=== PATIENT | male | born 1955 | race Caucasian/White ===

== ENCOUNTER → 2017-02-12 | Outpatient (REF) ==
--- NOTE | 2017-02-12 14:59 | REP ---
Left knee series: Five views. History: Degenerative joint disease. Findings: Five views of the left knee demonstrate nonarticular spurring on the anterior surface of the patella at the patellar tendon insertion consistent with chronic patellar tendonitis. Bones, joints, and soft tissues are otherwise radiographically unremarkable. Impression: Nonarticular spurring on the patella as above. Signed by Jeremiah Guerrero MD 02/12/2017 05:08 P
== END ==
LOC: M SMT 13:09
PROVIDERS: ATTEND Internal Medicine
DX: M25.762 Osteophyte, left knee (principal)

== ENCOUNTER → 2021-07-07 | Outpatient (CLI) | payer MEDICARE, OTHER ==
--- NOTE | 2021-07-07 10:41 | REP ---
INDICATION: VISUAL FIELD DEFECT COMPARISON: None. TECHNIQUE: Ruffin scale and color Doppler evaluation using linear high frequency transducer Findings: FINDINGS: Two-dimensional ruffin scale and color images demonstrate mild mixed atheromatous plaquing with normal laminar flow and no appreciable narrowing. Color Doppler interrogation demonstrates normal arterial wave patterns and velocities with no significant spectral broadening. Normal flow direction is appreciated in the bilateral vertebral arteries. ICA peak systolic velocity: Right 80.3 cm/s; Left 62.5 cm/s ICA diastolic velocity: Right 22.2 cm/s; Left 16.8 cm/s ECA peak systolic velocity: Right 121.2 cm/s; Left 109.0 cm/s CCA peak systolic velocity: Right 126.8 cm/s; Left 118.5 cm/s ICA/CCA ratio: Right 1.14 cm/s; Left 0.82 cm/s IMPRESSION: No hemodynamically significant areas of narrowing or stenosis appreciated. Based on set standards narrowing falls within the less than 50% range. <Electronically signed by Anthony Valera > 07/07/21 1037
== END ==
LOC: M RAD 10:04
PROVIDERS: ATTEND Ophthalmology
DX: H53.452 Other localized visual field defect, left eye (principal)

== ENCOUNTER → 2023-10-18 | Outpatient (REF) | payer MEDICARE, OTHER | LOC: M SMT PRO 12:57 | PROVIDERS: ATTEND Urology | DX: C61 Malignant neoplasm of prostate (principal) | CPT/HCPCS: 55700; 76942; 96372; G0416; J0665; J0696 ==

== ENCOUNTER → 2024-02-28 | Outpatient (CLI) | payer OTHER, MEDICARE ==
[2024-02-28 14:42] LABS: BLOOD UREA NITROGEN 21 MG/DL (9-23); CREATININE FOR GFR 1.18 MG/DL (0.70-1.30); GLOMERULAR FILTRATION RATE > 60.0 (>49)
== END ==
LOC: M LAB 13:19
PROVIDERS: ATTEND Otolaryngology
DX: R49.0 Dysphonia (principal)

== ENCOUNTER → 2024-03-02 | Outpatient (CLI) | payer OTHER, MEDICARE ==
[~2024-03-02] MED LIST: ISOVUE-370 76% 100ML VIAL As Ordered ONE
== END ==
LOC: M RAD 15:16
PROVIDERS: ATTEND Otolaryngology
DX: R49.0 Dysphonia (principal)
CPT/HCPCS: 70491; Q9967

== ENCOUNTER → 2024-04-06 | Outpatient (CLI) | payer OTHER, MEDICARE ==
[~2024-04-06] MED LIST changes: +E-Z-GAS II EFFERVESCENT PACKET (SODIUM BICARB./CITRIC ACID/SIMETHICONE) As Ordered ONE; +E-Z-HD 98% w/w 340GM SUSP BTL As Ordered ONE; +E-Z-PAQUE 96% w/w SUSP 176GM BTL As Ordered ONE; -ISOVUE-370 76% 100ML VIAL As Ordered ONE
== END ==
LOC: M RAD 09:23
PROVIDERS: ATTEND Otolaryngology
DX: R13.10 Dysphagia, unspecified (principal); K21.9 Gastro-esophageal reflux disease without esophagitis

== ENCOUNTER → 2024-06-16 | Outpatient (REF) | payer MEDICARE, OTHER | LOC: M SFHCDERM 17:57 | PROVIDERS: ATTEND Dermatology | DX: L72.0 Epidermal cyst (principal) ==

== ENCOUNTER → 2024-11-05 | Outpatient (CLI) | payer OTHER, MEDICARE | LOC: M PLALAB 09:24 | PROVIDERS: ATTEND Urology | DX: C61 Malignant neoplasm of prostate (principal) ==

== ENCOUNTER → 2025-06-09 | Outpatient (CLI) | payer MEDICARE, OTHER ==
[~2025-06-09] MED LIST changes: -E-Z-GAS II EFFERVESCENT PACKET (SODIUM BICARB./CITRIC ACID/SIMETHICONE) As Ordered ONE; -E-Z-HD 98% w/w 340GM SUSP BTL As Ordered ONE; -E-Z-PAQUE 96% w/w SUSP 176GM BTL As Ordered ONE; +PROHANCE 279.3MG/ML 15ML VIAL ONE; +PROHANCE 279.3MG/ML 5ML VIAL ONE
== END ==
LOC: M PLAIMG 09:43
PROVIDERS: ATTEND Otolaryngology
DX: H90.3 Sensorineural hearing loss, bilateral (principal)
CPT/HCPCS: 70553; A9576

== ENCOUNTER → 2025-07-01 | Outpatient (CLI) | payer MEDICARE, OTHER | LOC: M PLAIMG 08:21 | PROVIDERS: ATTEND Otolaryngology | DX: H90.A21 Sensorineural hearing loss, unilateral, right ear, with restricted hearing on the contralateral side (principal); H90.A32 Mixed conductive and sensorineural hearing loss, unilateral, left ear with restricted hearing on the contralateral side ==